=== PATIENT | female | born 1995 | race Two or more races ===

== ENCOUNTER 2024-01-19 10:22 | Observation (INO) | payer MEDICAID ==
[2024-01-19] MEDS ORDERED: ASPI-543 PO (11:38)
[2024-01-19] MEDS ORDERED: PREN1TAB71 OR (11:38)
[2024-01-19] MEDS ORDERED: FERR1TAB31 PO (11:38)
== END 2024-01-19 11:54 | disposition home or self-care (01) ==
LOC: LDRP 10:22 → UNDOADMOB 10:22 → LDRP 10:26
PROVIDERS: ADMIT Obstetrics & Gynecology; ATTEND Obstetrics & Gynecology
DX: O24.419 Gestational diabetes mellitus in pregnancy, unspecified control (principal); Z3A.33 33 weeks gestation of pregnancy
CPT/HCPCS: 59025; 76818; 81002; 82948; 82962; G0378

== ENCOUNTER 2024-02-02 11:19 | Observation (INO) | payer MEDICAID ==
[~2024-02-02 11:19] MED LIST: ASPI-543 PO; FERR1TAB31 PO; PREN1TAB71 OR
== END 2024-02-02 13:05 | disposition home or self-care (01) ==
LOC: LDRP 11:19 → UNDOADMOB 11:19 → LDRP 11:24
PROVIDERS: ADMIT Obstetrics & Gynecology; ATTEND Obstetrics & Gynecology
DX: O24.419 Gestational diabetes mellitus in pregnancy, unspecified control (principal); Z3A.35 35 weeks gestation of pregnancy
CPT/HCPCS: 59025; 76818; 81002; 82948; 82962; 94760; G0378

== ENCOUNTER 2024-02-09 11:42 | Observation (INO) | payer MEDICAID | END 2024-02-09 13:13 | disposition home or self-care (01) | LOC: LDRP 11:42 → UNDOADMOB 11:42 → LDRP 12:08 | PROVIDERS: ADMIT Obstetrics & Gynecology; ATTEND Obstetrics & Gynecology | DX: O24.419 Gestational diabetes mellitus in pregnancy, unspecified control (principal); Z3A.36 36 weeks gestation of pregnancy | CPT/HCPCS: 59025; 76818; 81002; G0378 ==

== ENCOUNTER 2024-02-12 18:15 | Observation (INO) | payer MEDICAID ==
[~2024-02-12] VITALS: Ht 157.5 cm; Wt 69.9 kg
== END 2024-02-12 19:55 | disposition home or self-care (01) ==
LOC: LDRP 18:15
PROVIDERS: ADMIT Obstetrics & Gynecology; ATTEND Obstetrics & Gynecology
DX: O47.9 False labor, unspecified (principal); O24.419 Gestational diabetes mellitus in pregnancy, unspecified control; O99.891 Other specified diseases and conditions complicating pregnancy; M54.9 Dorsalgia, unspecified; Z3A.36 36 weeks gestation of pregnancy
CPT/HCPCS: 59025; 81002; 82962; 94760; G0378

== ENCOUNTER 2024-02-16 09:00 | Observation (INO) | payer MEDICAID | END 2024-02-16 10:45 | disposition home or self-care (01) | LOC: UNDOADMOB 09:00 → LDRP 09:00 | PROVIDERS: ADMIT Obstetrics & Gynecology; ATTEND Obstetrics & Gynecology | DX: O24.419 Gestational diabetes mellitus in pregnancy, unspecified control (principal); O62.9 Abnormality of forces of labor, unspecified; Z3A.37 37 weeks gestation of pregnancy | CPT/HCPCS: 59025; 76818; 81002; 82948; 94760; G0378 ==

== ENCOUNTER 2024-02-23 09:24 | Observation (INO) | payer MEDICAID | END 2024-02-23 12:30 | disposition home or self-care (01) | LOC: LDRP 12:08 | PROVIDERS: ADMIT Obstetrics & Gynecology; ATTEND Obstetrics & Gynecology | DX: O24.419 Gestational diabetes mellitus in pregnancy, unspecified control (principal) ==

== ENCOUNTER 2024-02-23 18:31 | Observation (INO) | payer MEDICAID | END 2024-02-23 20:42 | disposition home or self-care (01) | LOC: LDRP 18:31 | PROVIDERS: ADMIT Obstetrics & Gynecology; ATTEND Obstetrics & Gynecology | DX: O24.419 Gestational diabetes mellitus in pregnancy, unspecified control (principal); Z3A.38 38 weeks gestation of pregnancy | CPT/HCPCS: 59025; 81002; 82948; 94760; G0378; 76818; 82962 ==

== ENCOUNTER 2024-03-02 07:36 | Observation (INO) | payer MEDICAID | END 2024-03-02 11:43 | disposition home or self-care (01) | LOC: UNDOADMOB 10:12 → LDRP 10:12 | PROVIDERS: ADMIT Obstetrics & Gynecology; ATTEND Obstetrics & Gynecology | DX: O24.419 Gestational diabetes mellitus in pregnancy, unspecified control (principal); Z3A.39 39 weeks gestation of pregnancy | CPT/HCPCS: 59025; 76818; 81002; 82948; 82962; 94760; G0378 ==

== ENCOUNTER 2024-03-04 05:05 | Observation (INO) | payer MEDICAID ==
[2024-03-04] MEDS ORDERED: BUPIVACAINE 0.25% INJ 50ML VIAL ONE (13:59)
== END 2024-03-04 12:35 | disposition home or self-care (01) ==
LOC: LDRP 10:14
PROVIDERS: ADMIT Obstetrics & Gynecology; ATTEND Obstetrics & Gynecology
DX: O24.419 Gestational diabetes mellitus in pregnancy, unspecified control (principal); Z3A.39 39 weeks gestation of pregnancy
CPT/HCPCS: 59025; 76818; 81002; 82948; 82962; 94760; G0378; J3490

== ENCOUNTER 2024-03-05 04:46 | Inpatient (IN) | payer MEDICAID ==
[~2024-03-05] VITALS: Ht 157.5 cm; Wt 72.6 kg
[2024-03-05] MEDS ORDERED: LIDOCAINE 2%HCL (LOCAL ANESTH.) INJ 20ML MDV IJ PRN (07:15)
[2024-03-05] MEDS ORDERED: BUTORPHANOL TARTRATE 2 MG/1 ML VIAL IV PRN (07:15)
[2024-03-05 07:33] LABS: Urine Bacteria None Seen /hpf (None Seen)
[2024-03-05 07:41] LABS: Basophils # (auto) 0 10 ^3/uL (0-0.2); Basophils % (auto) 0.6 % (0.0-2.0); Eosinophils # (auto) 0.1 10 ^3/uL (0-0.8); Eosinophils % (auto) 1.2 % (0.0-7.0); Hematocrit 37.5 % (36.0-46.0); Hemoglobin 12.7 g/dL (12.2-16.2); Lymphocytes # (auto) 1.5 10 ^3/uL (0.4-5.4); Lymphocytes % (auto) 26.6 % (10.0-50.0); Mean Corpuscular Hemoglobin 29.1 pg (28.0-32.0); Mean Corpuscular Hgb Conc. 33.9 g/dL (32.0-36.0); Monocytes # (auto) 0.3 10 ^3/uL (0-1.3); Monocytes % (auto) 5.4 % (0.0-12.0); Neutrophils # (auto) 3.8 10 ^3/uL (1.6-8.6); Neutrophils % (auto) 66.2 % (37.0-80.0); Nucleated Red Blood Cells % 0.1 %; Red Blood Cells 4.36 10^6/uL (4.0-5.20); Red Cell Distribution Width 17.3 % (11.8-14.3); White Blood Cell 5.7 10^3/uL (4.4-10.8)
[2024-03-05 07:53] LABS: Amphetamine Screen, Urine Neg (NEGATIVE); Barbiturate Scree,Urine Neg (NEGATIVE); Benzodiazephine Screen, Urine Neg (NEGATIVE); Cocaine Screen, Urine Neg (NEGATIVE); Urine Blood Negative /uL (Negative); Urine Clarity Clear (Clear); Urine Color Light-Yellow (Yellow); Urine Mucus FEW (None Seen); Urine Protein, UAD Negative (Negative); Urine Specific Gravity 1.016 (1.001-1.035); Urine Urobilinogen Normal (Negative); Urine WBC 1 /hpf (0 - 5); Urine pH 7.5 (5.0-9.0)
[2024-03-05 07:54] LABS: Cannabinoid Screen, Urine Neg (NEGATIVE); Opiate Scree,Urine Neg (NEGATIVE); Phencyclidine Screen, Urine Neg (NEGATIVE)
[2024-03-05 07:55] LABS: Alanine Aminotransferase 11 U/L (7-40); Alkaline Phosphatase 298 U/L (46-116); Anion Gap 4 (5-15); Aspartate Aminotransferase 15 U/L (13-40); BUN/Creatinine Ratio 11.1 (10.0-20.0); Blood Urea Nitrogen 5 mg/dL (9-23); Calcium 9.4 mg/dL (8.5-10.1); Carbon Dioxide 25 mmol/L (20-30); Chloride 107 mmol/L (98-107); Glucose 97 mg/dL (74-106); Potassium 3.8 mmol/L (3.5-5.1); Sodium 136 mmol/L (136-145)
[2024-03-05 07:56] LABS: Bilirubin, Total 0.4 mg/dL (0.2-1.0); Total Protein 6.6 g/dL (5.7-8.2)
[2024-03-05 08:02] LABS: INR 0.91 (0.9-1.15); Partial Thromboplastin Time 25.7 SEC (24.5-34.5); Prothrombin Time 9.7 sec (9.3-11.8)
[2024-03-05] MEDS: miSOPROStol 50 MCG per PRE-CUT 1/2 TAB PO PRN (08:59)
[2024-03-05 09:18] VITALS: BP 125/83; PULSE 74; RESP 18; TEMP 98.1; O2SAT 98
[2024-03-05] MEDS ORDERED: TERBUTALINE SULFATE 1 MG/ML 1ML VIAL SC PRN (13:15)
[2024-03-05] MEDS: LACTATED RINGER'S 1,000 ML IV SCH ×2 (14:08→14:58)
[2024-03-05] MEDS: LACT. RINGERS/OXYTOCIN 20UNITS 1,000 ML IV SCH (14:08)
[2024-03-06] VITALS (7 sets, daily range): BP systolic 115–127; BP diastolic 73–82; PULSE 81–94; RESP 14–18; TEMP 98–98.6; O2SAT 95–98
[2024-03-06] MEDS ORDERED: METHYLERGONOVINE MALEATE 0.2 MG/ML AMP IM PRN (01:00)
[2024-03-06] MEDS: BUTORPHANOL TARTRATE 2 MG/1 ML VIAL IV PRN (01:16)
[2024-03-06] MEDS: DERMOPLAST 60ML BOTTLE TOP PRN (01:34)
[2024-03-06] MEDS: PHISODERM TOP SOLN 240ML BTL TOP PRN (01:34)
[2024-03-06] MEDS: WITCH HAZEL-GLYCERIN PAD TOP PRN (01:34)
[2024-03-06] MEDS: LACT. RINGERS/OXYTOCIN 20UNITS 500 ML IV ONE ×2 (02:07→02:38)
[2024-03-06] MEDS ORDERED: ACETAMINOPHEN 325 MG TAB PO PRN (06:00)
[2024-03-06] MEDS ORDERED: IBUPROFEN 600 MG TAB PO PRN (06:00)
[2024-03-06] MEDS ORDERED: ONDANSETRON ODT 4 MG TAB PO PRN (06:00)
[2024-03-06] MEDS: DOCUSATE SOD 100 MG CAP PO SCH (21:57)
[2024-03-07 03:00] VITALS: BP 117/71; PULSE 80; RESP 16; TEMP 98.5; O2SAT 97
[2024-03-07 06:59] VITALS: BP 119/77; PULSE 73; RESP 18; TEMP 98.5; O2SAT 98
[2024-03-07 07:07] LABS: RPR Non Reactive (Non Reactive)
[2024-03-08 19:06] LABS: Treponema pallidum Ab (FTA-Ab) Non Reactive (Non Reactive)
== END 2024-03-07 11:40 | disposition home or self-care (01) | DRG 560 ==
LOC: LDRP 06:55 → UNDOADMIN 06:55 → LDRP 07:14
PROVIDERS: ADMIT Obstetrics & Gynecology; ATTEND Obstetrics & Gynecology
PROC: 10E0XZZ Delivery of Products of Conception, External Approach (ICD-10-PCS; principal; 2024-03-05)
PROC: 3E0R3BZ Introduction of Anesthetic Agent into Spinal Canal, Percutaneous Approach (ICD-10-PCS; 2024-03-05)
PROC: 00HU33Z Insertion of Infusion Device into Spinal Canal, Percutaneous Approach (ICD-10-PCS; 2024-03-05)
DX: O24.429 Gestational diabetes mellitus in childbirth, unspecified control (principal); Z37.0 Single live birth; Z3A.39 39 weeks gestation of pregnancy
CPT/HCPCS: 36415; 59025; 59409; 76818; 80053; 80307; 81001; 82948; 82962; 85025; 85610; 85730; 86592; 86703; 86803; 86850; 86900; 86901; 87340; 94760; 96360; 96361; 96365; 96366; G0378; J2590